=== PATIENT | female | born 1960 | race Caucasian/White ===

== ENCOUNTER 2017-11-03 14:57 | Emergency (ER) | payer OTHER ==
[2017-11-03 15:04] VITALS: BMI 20.5
[2017-11-03] MEDS ORDERED: ACETAMINOPHEN 325 MG TABLET (FP) PO ONE (15:07)
--- NOTE | 2017-11-03 15:08 | PDOC ---
Rapid Medical Evaluation Chief Complaint: Back Pain Time Seen by Provider: 11/03/17 15:04 Medical Evaluation: Allergies Allergy/AdvReac Type Severity Reaction Status Date / Time morphine Allergy Severe Swelling Verified 11/03/17 15:02 Penicillins Allergy Severe Hives Verified 11/03/17 15:02 Vital Signs Temp Pulse Resp BP Pulse Ox 64 16 156/106 96 11/03/17 15:02 11/03/17 15:02 11/03/17 15:02 11/03/17 15:02 11/03/17 15:04 Pt. is a 56 y/o F who presents for low back pain. Pt states approx. one hour ago she slipped and fell on her behind. After she fell her back seized up. Was unable to ambulate from the car; howerver pt was abvle to push her self onto a long board to be moved to a stretcher. Exam: No gross neuro deficits. TTP lower back b/l, (+) midline tenderness, PMS intact in the lower extremities b/l. Orders: CBC, CMP, IV insert, Tylenol, x-ray Pt to proceed to ED for further eval Discharge Disposition - Diagnosis Back pain - Referrals - Patient Instructions - Post Discharge Activity
--- NOTE | 2017-11-03 15:16 | PDOC ---
History of Present Illness - General Chief Complaint: Back Pain Stated Complaint: BACK PAIN Time Seen by Provider: 11/03/17 15:04 History Source: Patient Exam Limitations: No Limitations - History of Present Illness Initial Comments: 11/03/17 15:16 This is a 56 YOF with h/o ovarian cyst and orthopedic surgeries for uncomplicated musculoskeletal injury who p/w low back pain and inability to walk 2/2 pain ever since falling at home about 75 minutes prior to my interview. The pain is 10/10 in the midline low back (points to about L3) and it radiates to both sides of her groin. She denies preceding symptoms and notes she slipped and fell onto her rump, and had an immediate onset of pain keeping her from being able to walk. She took Ibuprofen before coming into the ED without relief. She denies any numbness, tingling, focal weakness, headache, SOB , chest pain, abdominal pain, urinary or bowel retention or incontinence, or other symptoms. She has a documented allergy to morphine but states that she has had this medication multiple times and it only ever bothered her one time, and it was a mild reaction at the site of an injection. Past History - Past Medical History Allergies/Adverse Reactions: Allergies Allergy/AdvReac Type Severity Reaction Status Date / Time morphine Allergy Severe Swelling Verified 11/03/17 15:02 Penicillins Allergy Severe Hives Verified 11/03/17 15:02 Home Medications: Ambulatory Orders NK [No Known Home Medication] 11/03/17 Anemia: No Asthma: No Cancer: No Cardiac Disorders: No CVA: No COPD: No CHF: No Dementia: No Diabetes: No GI Disorders: No Disorders: No HTN: No Hypercholesterolemia: No Liver Disease: No Seizures: No Thyroid Disease: No - Surgical History Abdominal Surgery: No Appendectomy: No Cardiac Surgery: No Cholecystectomy: No Lung Surgery: No Neurologic Surgery: No Orthopedic Surgery: No - Immunization History Immunization Up to Date: No - Suicide/Smoking/Psychosocial Hx Smoking Status: No Smoking History: Never smoked Have you smoked in the past 12 months: No Number of Cigarettes Smoked Daily: 0 Hx Alcohol Use: Yes (SOCIALLY) Drug/Substance Use Hx: No Substance Use Type: Alcohol Review of Systems - Review of Systems Able to Perform ROS?: Yes Constitutional: No: Chills, Fever, Unexplained wgt Loss HEENTM: No: Nose Congestion, Throat Pain Respiratory: No: Cough, Shortness of Breath Cardiac (ROS): No: Chest Pain, Palpitations ABD/GI: Yes: Other (groin pain). No: Constipated, Diarrhea, Nausea, Vomiting : No: Burning, Dysuria Musculoskeletal: Yes: Back Pain. No: Neck Pain Integumentary: No: Bruising, Rash Neurological: No: Headache, Numbness, Tingling, Weakness, Dizziness Endocrine: No: Unexplained Weight Gain, Unexplained Weight Loss *Physical Exam - Vital Signs Last Vital Signs Temp Pulse Resp BP Pulse Ox 64 16 156/106 96 11/03/17 15:02 11/03/17 15:02 11/03/17 15:02 11/03/17 15:02 - Physical Exam General Appearance: Yes: Nourished, Appropriately Dressed, Moderate Distress, Other (wet from swimming but not diaphoretic, writhing a bit on stretcher, laying on right side and cannot get comfortable, accompanied at bedside by significant other, answers questions appropriately) HEENT: positive: EOMI, JENARO, Normal ENT Inspection, Normal Voice, Hearing Grossly Normal. negative: Scleral Icterus (R), Scleral Icterus (L), Nasal Congestion Neck: positive: Trachea midline, Supple. negative: Tender, Rigid Respiratory/Chest: positive: Lungs Clear, Normal Breath Sounds. negative: Chest Tender, Respiratory Distress, Crackles, Rhonchi, Stridor, Wheezing Cardiovascular: positive: Regular Rhythm, Regular Rate, S1, S2. negative: Edema , JVD, Murmur Gastrointestinal/Abdominal: positive: Normal Bowel Sounds, Flat, Soft. negative : Tender, Organomegaly, Pulsatile Mass, Guarding Musculoskeletal: positive: Normal Inspection, Vertebral Tenderness (at about L3 without stepoff). negative: CVA Tenderness, Decreased Range of Motion Extremity: positive: Normal Capillary Refill, Normal Inspection, Normal Range of Motion. negative: Tender, Cyanosis Integumentary: positive: Normal Color, Dry, Warm. negative: Erythema, Rash, Bruising Neurologic: positive: recreation establishment manager II-XII NML intact, Fully Oriented, Alert, Normal Mood/ Affect, Normal Response, Motor Strength 5/5. negative: EOM Palsy, Facial Droop , Numbness, Sensory Deficit, Confused, Disoriented ED Treatment Course - LABORATORY CBC & Chemistry Diagram: 11/03/17 15:20 11/03/17 15:20 - Medications Given in the ED: ED Medications Discontinued Medications Generic Name Dose Route Start Last Admin Trade Name Meghna PRN Reason Stop Dose Admin Acetaminophen 650 mg 11/03/17 15:07 11/03/17 15:09 Tylenol - PO 11/03/17 15:08 Not Given ONCE ONE Medical Decision Making - Medical Decision Making Pt without significant h/o back pain p/w acute back pain after sustaining mechanical fall. No new red flag symptoms (see HPI). Initial Vital Signs Pulse Resp BP Pulse Ox 64 16 156/106 96 11/03/17 15:02 11/03/17 15:02 11/03/17 15:02 11/03/17 15:02 Exam: As noted in Physical Exam section. DDX IBNLT: compression fxr, other vertebral or spinous process fxr; muscle spasm , back sprain/strain, DDD, DJD, osteophyte, very unlikely any non-trauma related cause such as malignancy, spinal epidural abscess, epidural hematoma, meningitis, multiple myeloma, or other more concerning etiology. W/U ordered: CT L-spine without contrast, Labs as noted below TX ordered: Tylenol, Morphine 4 mg IV Push Laboratory Tests 11/03/17 11/03/17 15:20 15:20 WBC 8.7 RBC 4.32 Hgb 14.2 Hct 41.0 MCV 95.0 MCH 32.9 MCHC 34.7 RDW 13.3 Plt Count 239 MPV 8.9 Absolute Neuts (auto) 6.5 Neutrophils % 74.9 Lymphocytes % 18.1 Monocytes % 5.9 Eosinophils % 0.4 Basophils % 0.7 Nucleated RBC % 0 Sodium 143 Potassium 4.1 Chloride 107 Carbon Dioxide 27 Anion Gap 9 BUN 16 Creatinine 0.7 Creat Clearance w eGFR > 60 Random Glucose 119 H Calcium 9.6 Total Bilirubin 0.5 AST 22 ALT 26 Alkaline Phosphatase 54 Total Protein 7.6 Albumin 4.4 Patient not yet able to give urine sample. C/o pain again after first dose morphine seems to be wearing off. Repeat dose morphine given and patient taken to CT. Reassessment: remains painful, requests another dose of medication, 3rd order morphine placed (BP not soft or hypotensive). 11/03/17 18:31 CT has resulted with c/f L1 burst fracture. Dr. Juarez is speaking with Dr. Lisandro Minor regarding possibility of OR. Dr. Minor has viewed the CT images; likely Pt will need surgery but will get MRI L -spine wo contrast. Dr. Minor will see the patient in the ED. Vital Signs Temperature 99.2 F 11/03/17 20:49 Pulse Rate 97 H 11/03/17 20:49 Respiratory Rate 18 11/03/17 20:49 Blood Pressure 147/90 11/03/17 20:49 O2 Sat by Pulse Oximetry (%) 100 11/03/17 20:49 11/03/17 20:[address] Minor who is able to do the surgical procedure, but needs vascular on board. Dr. Minor called vascular and there is nobody in town with [facility] who has done this procedure recently. Discussed dispo with Dr. Minor, agreement is made that patient will need to be transferred. [facility] transfer center called, spoke with admitting computer forensic specialist Dr. Conde. Patient to be transferred to [facility] ED. Consent signed by patient's and by myself. EMS arrives to [facility] ED. Patient transferred to EMS stretcher without issue. *DC/Admit/Observation/Transfer Diagnosis at time of Disposition: Fall from ground level Back pain Qualifiers: Back pain location: low back pain Chronicity: acute Back pain laterality: midline Sciatica presence: without sciatica Qualified Code(s): M54.5 - Low back pain L1 vertebral fracture Qualifiers: Encounter type: initial encounter Fracture type: closed Fracture morphology: burst- unstable Qualified Code(s): S32.012A - Unstable burst fracture of first lumbar vertebra, initial encounter for closed fracture - Discharge Dispostion Disposition: TRANSFER ACUTE CARE/OTHER HOSP Condition at time of disposition: Guarded - Referrals - Patient Instructions - Post Discharge Activity - Transfer to Acute Care Facility Accepting Physician:: Dr. Conde
[2017-11-03] MEDS ORDERED: morphine CARPU-JECT 4 MG/1 ML DISP.SYRIN IVPUSH ONE ×4 (15:28→20:37)
[2017-11-03 15:29] LABS: BASO % 0.7 % (0-2.0); EOS % 0.4 % (0-4.5); HEMOGLOBIN 14.2 GM/dL (10.7-15.3); LYMPH % 18.1 % (8-40); MCH 32.9 pg (25.7-33.7); MCHC 34.7 g/dl (32.0-36.0); MEAN PLT VOLUME 8.9 fl (7.5-11.1); MONO % 5.9 % (3.8-10.2); NEUT % 74.9 % (42.8-82.8); PLATELET COUNT 239 K/MM3 (134-434); RBC 4.32 M/mm3 (3.60-5.2); RDW 13.3 % (11.6-15.6); WHITE BLOOD COUNT 8.7 K/mm3 (4.0-10.0)
[2017-11-03] MEDS ORDERED: morphine SULFATE 4 MG/ML VIAL ONE ×4 (15:31→20:42)
[2017-11-03 15:48] LABS: ALBUMIN 4.4 g/dl (3.4-5.0); ANION GAP 9 (8-16); BLOOD UREA NITROGEN 16 mg/dL (7-18); CALCIUM 9.6 mg/dL (8.5-10.1); CHLORIDE 107 mmol/L (98-107); CO2 27 mmol/L (21-32); CREATININE 0.7 mg/dL (0.55-1.02); GLUCOSE,RANDOM 119 mg/dL (74-106); POTASSIUM 4.1 mmol/L (3.5-5.1); SGOT/AST 22 U/L (15-37); SGPT/ALT 26 U/L (12-78); SODIUM 143 mmol/L (136-145)
[2017-11-03 15:51] LABS: ALK PHOS 54 U/L (45-117); BILIRUBIN,TOTAL 0.5 mg/dL (0.2-1.0); TOT PROT 7.6 g/dl (6.4-8.2)
--- NOTE | 2017-11-03 16:00 | PDOC ---
Attending Attestation - Medical Decision Making 11/03/17 18:[address] Lisandro Minor (Neurosurgery) at 6:10 pm. Pending return phone call. 11/03/17 18:[address] Lisandro Minor (Neurosurgery) at 6:30 pm. Case discussed. <Joe Duarte - Last Filed: 11/03/17 18:33> - Resident Resident Name: RadhaNelli - ED Attending Attestation I have performed the following: I have examined & evaluated the patient, The case was reviewed & discussed with the resident, I agree w/resident's findings & plan, Exceptions are as noted - HPI HPI: 11/03/17 16:00 56 year old female with history of ovarian cyst p/w back pain. The patient was walking down a step when she missed a step and stepped down hard. She twisted her back and is now having severe lower back spasm. Denies numbness, weakness, urinary or bowel incontinence. Because of the pain, the patient is unable to walk 2/2 pain. - Physicial Exam PE: 11/03/17 16:08 GENERAL: Awake, alert, and fully oriented, in no acute distress HEAD: No signs of trauma EYES: EOMI, sclera anicteric, conjunctiva clear ENT: Auricles normal inspection, hearing grossly normal, nares patent,Moist mucosa NECK: Normal ROM, supple BACK: TTP ~L3 region. No stepoffs. Right lower back pain 2/2 palpation. Able to flex and extend the hips bilaterally. Sensation and strength intact in the lower extremities. EXTREMITIES: Normal range of motion, no edema. No clubbing or cyanosis. No cords, erythema, or tenderness NEUROLOGICAL: Cranial nerves II through XII grossly intact. Normal speech SKIN: Warm, Dry, normal turgor, no rashes or lesions noted. - Medical Decision Making 11/03/17 16:10 Vital Signs Temp Pulse Resp BP Pulse Ox 64 16 156/106 100 11/03/17 15:02 11/03/17 15:02 11/03/17 15:02 11/03/17 16:05 I suspect that the patient has severe lower back spasm. Will however r/o acute lower back fracture. CT lumbar spine Pain control. Reassess. 11/03/17 18:16 L1 burst fracture (unstable) with retropulsion, concerns for compromising spinal cord. Pt made NPO. Dr. Lisandro Minor (neurosurgery) paged emergently. 11/03/17 18:28 Dispo per neurosurgery. 11/03/17 18:[address] Minor. Requests MRI lumbar spine without contrast Will come and evaluate patient for surgery. Will admit the patient. 11/03/17 18:54 Case discussed with [facility] hospitalist Dr. Tinoco. Case admitted to Dr. Pastor. <Dane Juarez - Last Filed: 11/03/17 18:59> Heart Score/ECG Review #1 ECG reviewed & interpreted by me at: 18:50 11/03/17 18:59 NSR 104, no std/mayo, normal axis, normal intervals, QTC 412 msec nonspecific T wave findings. <Dane Juarez - Last Filed: 11/03/17 18:59> Attestations - Attestations 11/03/17 18:31 Documentation prepared by Joe Duarte, acting as medical laboratory scientist for Dane Juarez MD. <Joe Duarte - Last Filed: 11/03/17 18:33>
[2017-11-03 18:49] LABS: INR 0.96 (0.83-1.09); PROTHROMBIN TIME (PATIENT) 10.8 SEC (9.7-13.0)
[2017-11-03 18:52] LABS: ACTIVATED PTT 22.7 SECONDS (25.2-36.5)
--- NOTE | 2017-11-03 18:55 | PDOC ---
*Physical Exam - Vital Signs Last Vital Signs Temp Pulse Resp BP Pulse Ox 107 H 18 154/98 100 11/03/17 18:38 11/03/17 18:38 11/03/17 18:38 11/03/17 18:38 ED Treatment Course - LABORATORY CBC & Chemistry Diagram: 11/03/17 15:20 11/03/17 15:20 - ADDITIONAL ORDERS Additional order review: Laboratory Results 11/03/17 11/03/17 18:25 15:20 PT with INR 10.80 INR 0.96 PTT (Actin FS) 22.7 Sodium 143 Potassium 4.1 Chloride 107 Carbon Dioxide 27 Anion Gap 9 BUN 16 Creatinine 0.7 Creat Clearance w eGFR > 60 Random Glucose 119 H Calcium 9.6 Total Bilirubin 0.5 AST 22 ALT 26 Alkaline Phosphatase 54 Total Protein 7.6 Albumin 4.4 11/03/17 15:20 RBC 4.32 MCV 95.0 MCHC 34.7 RDW 13.3 MPV 8.9 Neutrophils % 74.9 Lymphocytes % 18.1 Monocytes % 5.9 Eosinophils % 0.4 Basophils % 0.7 - Medications Given in the ED: ED Medications Discontinued Medications Generic Name Dose Route Start Last Admin Trade Name Meghna PRN Reason Stop Dose Admin Acetaminophen 650 mg 11/03/17 15:07 11/03/17 15:09 Tylenol - PO 11/03/17 15:08 Not Given ONCE ONE Morphine Sulfate 4 mg 11/03/17 15:28 11/03/17 15:38 Morphine Injection - IVPUSH 11/03/17 15:29 4 mg ONCE ONE Administration Morphine Sulfate 4 mg 11/03/17 16:12 11/03/17 16:32 Morphine Injection - IVPUSH 11/03/17 16:13 4 mg ONCE ONE Administration Morphine Sulfate 4 mg 11/03/17 18:12 11/03/17 18:36 Morphine Injection - IVPUSH 11/03/17 18:13 4 mg ONCE ONE Administration *DC/Admit/Observation/Transfer Diagnosis at time of Disposition: Fall from ground level Back pain Qualifiers: Back pain location: low back pain Chronicity: acute Back pain laterality: midline Sciatica presence: without sciatica Qualified Code(s): M54.5 - Low back pain L1 vertebral fracture Qualifiers: Encounter type: initial encounter Fracture type: closed Fracture morphology: burst- unstable Qualified Code(s): S32.012A - Unstable burst fracture of first lumbar vertebra, initial encounter for closed fracture - Discharge Dispostion Condition at time of disposition: Stable Decision to Admit order: Yes - Referrals - Patient Instructions Printed Discharge Instructions: DI for Low Back Pain Additional Instructions: You were seen in the ER for back pain. We did laboratory work on your blood and urine, as well as imaging studies, and we did not and we did not find any concerning abnormalities. Your symptoms improved with the medications we gave you in the ER. After our assessment, we do not believe you are having a medical emergency at this time, and we believe you are safe to go home. Please follow up with your regular PCP doctor in 1-3 days. Call their clinic as soon as possible, tell them you were seen in the ER, and tell them you need an appointment. If you have any new or worsening symptoms please come back to the ER at any time (24 hours a day), especially for fever, new numbness new tingling , new weakness, new urinary or bowel incontinence or retention, or other new symptoms. If you are having severe or life threatening symptoms, or symptoms that make it unsafe to drive or have someone drive you, please call 911. - Post Discharge Activity
--- NOTE | 2017-11-03 19:38 | PN ---
Teaching Attending Note ATTENDING PHYSICIAN STATEMENT I saw and evaluated the patient. I reviewed the resident's note and discussed the case with the resident. I agree with the resident's findings and plan as documented. SUBJECTIVE: Patient is a 56 year old woman with history of ovarian cyst and orthopedic surgeries for uncomplicated musculoskeletal injury who presents with severe low back pain and inability to walk after a mechanical fall at home today. The pain is 10/10 in the midline low back (points to about L3) and it radiates to both sides of her groin. She denies preceding symptoms and notes she slipped and fell onto her rump, and had an immediate onset of pain keeping her from being able to walk. She took Ibuprofen before coming into the ER without relief. She denies any numbness, tingling, focal weakness, headache, SOB, chest pain, abdominal pain, urinary or bowel retention or incontinence. She has a documented allergy to morphine but states that she has had this medication multiple times and it only ever bothered her one time, and it was a mild reaction at the site of an injection. OBJECTIVE: Vital Signs Period Temp Pulse Resp BP Sys/Mandujano Pulse Ox Last 24 Hr 64-107 16-20 154-157/94-106 96-100 HEENT: No Jaundice, eye redness or discharge, PERRLA, EOMI. Normocephalic, atraumatic. External ears are normal and hearing is grossly intact. No nasal discharge. Neck: Supple, nontender. No palpable adenopathy or thyromegaly. No JVD Chest: Good effort. Clear to auscultation and percussion. Heart: Regular. No S3, rub or murmur Abdomen: Not distended, soft, nontender and no HSM. No rebound or guarding. Normoactive bowel sounds. Ext: Peripheral pulses intact. No leg edema. Skin: Warm and dry. No petechiae, rash or ecchymosis. Neuro: Alert. Oriented x3. CN 2-12 grossly intact. Sensation grossly intact in all four extremities and DTR are symmetric. Home Medications Medication Instructions Recorded NK [No Known Home Medication] 11/03/17 Abnormal Lab Results 11/03/17 15:20 Random Glucose 119 H ASSESSMENT AND PLAN: 1. Fall/Severe Back Pain - CT scan shows L1 burst fracture with retropulsion. Being evaluated by neurosurgeon - concern for sinal cord compression. Getting an MRI. 2. Uncontrolled hypertension - Hypoalbuminemia - Possibly due to combined effects of malnutrition and inflammation associated with comorbid chronic conditions. Will ensure adequate dietary protein intake and also consult hris specialist. DM - For now, we will hold the home diabetes drugs and implement sliding scale insulin regimen. Provide comprehensive diabetes care with patient teaching and counseling about the importance of euglycemia, eye care and foot care. Tobacco Use We will provide patient all the necessary assistance to facilitate smoking cessation and prescribe Nicotine patch. Will consult nephrology and avoid nephrotoxic agents such as NSAIDS, aminoglycosides, contrast dyes and certain Alternative medicine products. Anemia - Do basic anemia work up including serial stool guaiacs, reticulocyte count and iron studies. Would benefit from Procrit therapy once iron replete. Obesity - Will provide patient all the necessary assistance , counseling and positive reinforcement to facilitate weight loss. Consult hris specialist. Alcohol abuse - Implement [facility] alcohol withdrawal protocol and fall precautions. Treat with thiamine and folic acid and monitor electrolytes (Ca,Mg, K,P). Beet Flumer patient about abstaining from alcohol and refer to alcohol detox upon discharge. DVT prophylaxis - Heparin 5000u sq tid. Lovenox 40 mg SQ q 24 hours. Advance directives - Full code
[2017-11-03 19:56] LABS: URINE APPEARANCE CLEAR; URINE BILIRUBIN NEGATIVE (<2.0 mg/dL); URINE COLOR YELLOW; URINE GLUCOSE (UA) NEGATIVE (NEGATIVE); URINE KETONE 1+ (NEGATIVE); URINE LEUK ESTERASE NEGATIVE (NEGATIVE); URINE NITRITE NEGATIVE (NEGATIVE); URINE PROTEIN NEGATIVE (NEGATIVE); URINE UROBILINOGEN NEGATIVE mg/dL (0.2-1.0)
[2017-11-03 19:58] LABS: HCG,QUALITATIVE URINE NEGATIVE
--- NOTE | 2017-11-03 20:04 | PN ---
Progress Note (short form) - Note Progress Note: NEUROSURGERY CONSULT DICTATED h/o ovarian cyst and orthopedic surgeries c/o low back pain and inability to walk 2/2 pain ever since falling at home on her buttocks and twisting to the L earlier today. The pain is 10/10 in the midline low back radiating to both groin. Pain prevented her from being able to walk. She took Ibuprofen before coming into the ED without relief. She denies any weakness, tingling, focal weakness, headache, CP, SOB urinary or bowel retention or incontinence. C/o L anterior thigh numbness. PE: AF, VSS HEENT- NC/AT; neck- supple; Cor- RR; Lungs- CTA; Abd- benign; Ext- no sign of DVT, 2+ pulses CN- intact; Motor- 5/5 except L IP 4/5; Sensation- decreased LT/PP L L2-3; DTR- 2+ Labs OK CT LS spine- L1 burst fracture 55% reduction of anterior vertebral column height , with retropulsion which compromises about 60% of the canal, and kyphosis of 25 % Symptomatic post-traumatic L1 burst fracture Given 55% vertebral column height reduction, 60% canal compromise, and 25 degree kyphosis, this is an unstable fracture requiring surgical intervention Preference is lateral retroperitoneal approach for T12-L2 exposure, L1 vertebrectomy, T12-L1 interbody fusion, instrumentation, probable CSF repair, lumbar drain Pros and cons of treatment approaches discussed including bracing only discussed Risks- bleeding, infection, CSF leak, neurological injury, DVT/PE, paralysis Pt wishes to undergo surgery, but we cannot identify an approach vascular/ general surgeon for the surgery after multiple attempts after speaking to multiple vascular/general surgeons. D/w ED and hospitalist
[2017-11-03 20:50] VITALS: BP 147/90; PULSE 97; TEMP 99.2
--- NOTE | 2017-11-03 21:18 | CONS ---
DATE OF CONSULTATION: 11/03/2017 CHIEF COMPLAINT: L1 burst fracture. HISTORY OF PRESENT ILLNESS: The patient is a 56-year-old right-handed female with a history of ovarian cyst and prior elective orthopedic surgery, who complains of severe lower back pain after a fall today. She was at home and fell to the ground on her buttocks and twisted towards her left side. She complained of immediate severe lower back pain and was not able to ambulate as a result. She denied any leg weakness or tingling and has no bowel or bladder incontinence. She did complain of some numbness in the left anterior thigh area. She had not had prior similar symptoms. There is no fever or chills. She has no headache, nausea, vomiting, chest pain or shortness of breath. Past medical history is significant for ovarian cyst and elective orthopedic procedures. Her current medication is none. ALLERGIES: To MORPHINE and PENICILLIN. In terms of social history, she is not a smoker and only drinks alcohol socially. She lives at home with her . Review of systems is otherwise negative for other major constitutional, head and neck, cardiovascular, pulmonary, gastrointestinal, genitourinary, endocrinological, neurological, or psychological problem except for the above. PHYSICAL EXAMINATION: General: She is awake and alert. She is not in acute distress. HEENT: Normocephalic, atraumatic. Anicteric. Neck: Supple with no lymphadenopathy, no carotid bruit. Coronary: Regular rhythm. Lungs: Clear bilaterally. Abdomen: Benign. Extremities: No signs of DVT. Neurologic: She is awake and alert, oriented x4. Cranial nerves examination is intact, 2-12. Motor examination shows 5/5 strength, except for left iliopsoas, which is 4/5. Sensory examination shows diminished sensation of the left L2 and L3 distribution to pinprick and light touch. Deep tendon reflexes are 2+ throughout. There is no pathologic long tract sign. Laboratory examination shows white blood cell count 8.7, hemoglobin 14.2, platelet count 139,000, INR is 0.96, and PTT is 22.7. Serum sodium is 143 and potassium is 4.1. BUN 16, creatinine 0.7. LFTs are normal. CT scan of the lumbar spine demonstrated L1 burst fracture with approximately 55% decreased anterior vertebral column height. There is also 60% compromise of the spinal canal at this level. There is a kyphosis angle of approximately 20 to 25 degrees. IMPRESSION: 1. Acute L1 burst fracture, unstable. 2. History of ovarian cyst. RECOMMENDATION: The patient presents with acute lower back pain secondary to L1 burst fracture. There is significant retropulsion in the bony fragment in the spinal canal. There is also significant collapse of vertebral column height in addition to the kyphosis. She therefore has an unstable L1 burst fracture, and the most appropriate treatment is surgical reduction and stabilization with instrumentation. This will best be performed through a retroperitoneal approach to T12-L1 with an L1 vertebrectomy, interbody fusion and instrumentation for T12 to L2. The pros and cons of treatment approaches including using only a back brace or only using a TLSO brace were discussed with the patient. The patient wants to have surgery done. However, I was not able to identify an appropriate surgeon for this procedure. I spoke to 2 vascular surgeons and 1 general surgeon, who used to do vascular surgery, and none of them are available or feel comfortable performing the approach. Therefore, the best treatment, I would recommend that patient be transferred to a teaching institution to undergo the potential surgical procedure. MILENA THORNTON M.D. [id number]
--- NOTE | 2017-11-04 11:13 | EKG ---
Test Reason : Blood Pressure : / mmHG Vent. Rate : 103 BPM Atrial Rate : 103 BPM P-R Int : 176 ms QRS Dur : 092 ms QT Int : 354 ms P-R-T Axes : 060 038 248 degrees QTc Int : 463 ms SINUS TACHYCARDIA POSSIBLE LEFT ATRIAL ENLARGEMENT ABNORMAL ECG WHEN COMPARED WITH ECG OF 03-JUN-2004 10:19, VENT. RATE HAS INCREASED BY 37 BPM NONSPECIFIC T WAVE ABNORMALITY NOW EVIDENT IN INFERIOR LEADS T WAVE INVERSION NOW EVIDENT IN LATERAL LEADS QT HAS LENGTHENED Confirmed by KIARA ALARCON, SUSANA ([id number]) on 11/04/2017 11:13:44 AM Referred By: Confirmed By:SUSANA CRAIG MD
== END 2017-11-03 21:15 | disposition short-term general hospital (02) ==
LOC: JER 14:57
PROC: 3E033NZ Introduction of Analgesics, Hypnotics, Sedatives into Peripheral Vein, Percutaneous Approach (ICD-10-PCS; principal; 2017-11-03)
DX: S32.012A Unstable burst fracture of first lumbar vertebra, initial encounter for closed fracture (principal); W10.8XXA Fall (on) (from) other stairs and steps, initial encounter; Y93.89 Activity, other specified; Y92.038 Other place in apartment as the place of occurrence of the external cause; Y99.8 Other external cause status
CPT/HCPCS: 36415; 72131-TC; 72148-TC; 80053; 81003; 84703; 85025; 85610; 85730; 86850; 86900; 86901; 93005; 93010; 96374; 96376; 99284-25